=== PATIENT | female | born 1945 | race Caucasian/White ===

== ENCOUNTER 2017-11-24 19:17 | Emergency (ER) | payer MEDICARE, SELFPAY ==
[2017-11-24 19:18] VITALS: BP 147/75; PULSE 90; RESP 16; TEMP 36.2; O2SAT 94; BMI 21.6
[2017-11-24 19:24] VITALS: O2SAT 94
[2017-11-24] MEDS: Ondansetron 4 MG/2 ML Vial IM (19:31)
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
[2017-11-24] MEDS: Morphine 4 MG/ML Syringe IV ×2 (20:12→22:04)
[2017-11-24] MEDS: Diphth,Pertuss(Acell),Tet Vac 0.5 ML Vial IM (20:12)
[2017-11-24 21:34] VITALS: BP 129/66; PULSE 89; RESP 16; O2SAT 100
[2017-11-24] MEDS: Ondansetron 4 MG/2 ML Vial IV (22:05)
[2017-11-24 23:24] VITALS: BP 119/66; PULSE 96; RESP 16; O2SAT 99
[2017-11-24 23:33] VITALS: BP 119/76; PULSE 95; RESP 16; O2SAT 99
== END 2017-11-24 23:38 | disposition short-term general hospital (02) ==
PROVIDERS: Emergency Provider Emergency Medicine; Family Provider Student in an Organized Health Care Education/Training Program; PCP Student in an Organized Health Care Education/Training Program
DX: S72.401A Unspecified fracture of lower end of right femur, initial encounter for closed fracture (principal); S92.321A Displaced fracture of second metatarsal bone, right foot, initial encounter for closed fracture; S92.331A Displaced fracture of third metatarsal bone, right foot, initial encounter for closed fracture; S92.341A Displaced fracture of fourth metatarsal bone, right foot, initial encounter for closed fracture; S32.039A Unspecified fracture of third lumbar vertebra, initial encounter for closed fracture; S80.811A Abrasion, right lower leg, initial encounter; V86.99XA Unspecified occupant of other special all-terrain or other off-road motor vehicle injured in nontraffic accident, initial encounter; Y93.9 Activity, unspecified; Y92.9 Unspecified place or not applicable; Y99.9 Unspecified external cause status; M54.2 Cervicalgia; I10 Essential (primary) hypertension; Z79.899 Other long term (current) drug therapy
CPT/HCPCS: 72100; 72125; 73552; 73620; 90715; 96372; 96374; 96375; 96376; 99285; J7030; A4216; J2405

== ENCOUNTER 2017-12-01 16:32 | Inpatient (IN) | payer MEDICARE, SELFPAY ==
[2017-12-01 16:55] VITALS: BP 152/72; PULSE 103; RESP 18; TEMP 37.2; O2SAT 98; BMI 23.0
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
--- NOTE | 2017-12-01 20:25 | NURSING ---
Discussed code status with patient, patient wishes to be a full code.
[2017-12-01] MEDS: Acetaminophen 500 MG Tablet 1000 MG PO (21:17)
[2017-12-02 06:03] LABS: Absolute Lymphocyte Count 0.97 X10^3/ul (0.83-4.51); Absolute Neutrophil Count 5.7 X10^3/uL (2.0-7.7); Basophil# 0.02 X10^3/uL; Basophil% 0.3 % (0-1); Eosinophil# 0.19 X10^3/uL; Eosinophils% 2.5 % (0-5); Hematocrit 27.6 % (37-47); Lymphocyte # 0.97 X10^3/ul (4.0); Lymphocyte % 12.9 % (19-41); Mean Corp Hgb Conc 32.6 g/gl (32-36); Mean Corpuscular Hgb 29.7 pg (27.0-32.0); Mean Corpuscular Volume 91.1 fL (81-99); Mean Platelet Vol. 10.3 fl (6.2-12.0); Monocyte# 0.53 X10^3/uL; Neutrophil # 5.71 X10^3/uL (2.7-7.7); Neutrophil % 75.8 % (47-70); Platelet Count 401 K/mm3 (150-450); RBC Distribution Width CV 13.9 % (11.6-14.6); Red Blood Count 3.03 M/mm3 (4.2-5.4); White Blood Count 7.5 K/mm3 (4.4-11.0)
[2017-12-02 06:06] LABS: POSITIVE COUNT NO; POSITIVE DIFFERENTIAL NO; POSITIVE MORPHOLOGY NO
[2017-12-02 06:13] VITALS: BP 139/72; PULSE 99
[2017-12-02 06:13] LABS: Anion Gap 14 (5-15); BUN 10 mg/dL (7-18); BUN/Creat Ratio 17.2 RATIO (10-20); Calcium,Total 8.3 mg/dL (8.5-10.1); Chloride 107 mmol/L (98-107); Creatinine, Serum 0.58 mg/dL (0.55-1.02); EST Glomerular Filtration Rate 109 mL/min (>60); Est Glom Filt Rate - Afr Amer 131 mL/min (>60); Estimated Creatinine Clearance 46.43 ml/min; Glucose 113 mg/dL (74-106); Potassium 3.8 mmol/L (3.5-5.1); Sodium Level 143 mmol/L (136-145)
[2017-12-02] MEDS: Enoxaparin 30 MG/0.3 ML Syringe SC ×2 (06:15→17:13)
[2017-12-02] MEDS: Sertraline 50 MG Tablet 25 MG PO (06:15)
[2017-12-02] MEDS: Lisinopril 10 MG Tablet PO (06:15)
[2017-12-02] MEDS: Meloxicam 15 MG Tablet PO (06:15)
[2017-12-02] MEDS: Acetaminophen 500 MG Tablet 1000 MG PO ×3 (06:16→21:22)
[2017-12-02] MEDS: Senna/Docusate Sodium 1 Tablet 2 TABLET PO ×2 (06:16→17:13)
[2017-12-02] MEDS: Atorvastatin Calcium 40 MG Tablet PO (06:19)
[2017-12-02 06:32] VITALS: PULSE 99
[2017-12-02] MEDS: Magnesium Oxide 400 MG Tablet 200 MG PO (08:23)
[2017-12-02] MEDS: oxyCODONE 5 MG Tablet PO ×3 (08:28→17:17)
[2017-12-02] MEDS: Tuberculin,Purif.prot.deriv. 50 TU/ML Vial 5 ML ID (10:48)
[2017-12-02] MEDS: Iron Polysaccharide Complex 150 MG CAPSULE PO (10:48)
--- NOTE | 2017-12-02 11:58 | NURSING ---
Ortho surgeon office notified to clarify wt bearing status. Pt NWB to RLE until f/u appt 12/15/17. Message left with Dr Diamond for f/u appt, awaiting return call
[2017-12-02 15:45] VITALS: BP 126/56; PULSE 89; RESP 18; TEMP 36.1; O2SAT 99
[2017-12-03] MEDS: Senna/Docusate Sodium 1 Tablet 2 TABLET PO (05:58)
[2017-12-03] MEDS: Enoxaparin 30 MG/0.3 ML Syringe SC ×2 (05:59→17:06)
[2017-12-03] MEDS: Atorvastatin Calcium 40 MG Tablet PO (05:59)
[2017-12-03] MEDS: Acetaminophen 500 MG Tablet 1000 MG PO ×3 (05:59→21:09)
[2017-12-03] MEDS: Meloxicam 15 MG Tablet PO (05:59)
[2017-12-03] MEDS: Lisinopril 10 MG Tablet PO (05:59)
[2017-12-03] MEDS: Sertraline 50 MG Tablet 25 MG PO (06:00)
[2017-12-03] MEDS: oxyCODONE 5 MG Tablet PO ×3 (06:09→17:11)
[2017-12-03] MEDS: Magnesium Oxide 400 MG Tablet 200 MG PO (08:51)
[2017-12-03] MEDS: Iron Polysaccharide Complex 150 MG CAPSULE PO (08:51)
--- NOTE | 2017-12-03 11:03 | CASEMGMT ---
Insurance Clinical information sent. Pending continued stay approval at this time. Auth#[id number] Sejal MOREAU, PHARMACY INFORMATICS SPECIALIST
[2017-12-03 15:59] VITALS: BP 139/68; PULSE 96; RESP 16; TEMP 36.6; O2SAT 97
[2017-12-04 05:47] VITALS: BP 143/76
[2017-12-04] MEDS: Sertraline 50 MG Tablet 25 MG PO (05:48)
[2017-12-04] MEDS: Enoxaparin 30 MG/0.3 ML Syringe SC ×2 (05:49→17:11)
[2017-12-04] MEDS: Meloxicam 15 MG Tablet PO (05:49)
[2017-12-04] MEDS: Lisinopril 10 MG Tablet PO (05:49)
[2017-12-04] MEDS: Acetaminophen 500 MG Tablet 1000 MG PO ×3 (05:50→21:16)
[2017-12-04] MEDS: Atorvastatin Calcium 40 MG Tablet PO (05:51)
[2017-12-04] MEDS: Iron Polysaccharide Complex 150 MG CAPSULE PO (08:16)
[2017-12-04] MEDS: Magnesium Oxide 400 MG Tablet 200 MG PO (08:16)
[2017-12-04] MEDS: oxyCODONE 5 MG Tablet PO ×2 (09:33→17:14)
--- NOTE | 2017-12-04 10:20 | CASEMGMT ---
Insurance Continued stay approved with next update due on 12/09/17. Auth#[id number] Sejal MOREAU, PEDIATRIC DERMATOLOGIST
[2017-12-04 16:00] VITALS: BP 136/75; PULSE 95; RESP 18; TEMP 36.4; O2SAT 96
[2017-12-05] MEDS: Enoxaparin 30 MG/0.3 ML Syringe SC ×2 (06:12→18:03)
[2017-12-05] MEDS: Meloxicam 15 MG Tablet PO (06:12)
[2017-12-05] MEDS: Atorvastatin Calcium 40 MG Tablet PO (06:12)
[2017-12-05] MEDS: Sertraline 50 MG Tablet 25 MG PO (06:12)
[2017-12-05] MEDS: Lisinopril 10 MG Tablet PO (06:12)
[2017-12-05] MEDS: Acetaminophen 500 MG Tablet 1000 MG PO ×3 (06:13→21:01)
[2017-12-05] MEDS: Iron Polysaccharide Complex 150 MG CAPSULE PO (09:07)
[2017-12-05] MEDS: Magnesium Oxide 400 MG Tablet 200 MG PO (09:07)
[2017-12-05] MEDS: oxyCODONE 5 MG Tablet PO ×2 (11:58→18:06)
[2017-12-05 15:10] VITALS: BP 132/69; PULSE 89; RESP 18; TEMP 36.8; O2SAT 90
[2017-12-05 16:46] VITALS: PULSE 72
[2017-12-06] MEDS: Acetaminophen 500 MG Tablet 1000 MG PO ×2 (06:50→13:31)
[2017-12-06] MEDS: Sertraline 50 MG Tablet 25 MG PO (06:50)
[2017-12-06] MEDS: Meloxicam 15 MG Tablet PO (06:50)
[2017-12-06] MEDS: Lisinopril 10 MG Tablet PO (06:50)
[2017-12-06] MEDS: Atorvastatin Calcium 40 MG Tablet PO (06:51)
[2017-12-06] MEDS: Enoxaparin 30 MG/0.3 ML Syringe SC ×2 (06:51→18:15)
[2017-12-06] MEDS: Magnesium Oxide 400 MG Tablet 200 MG PO (07:44)
[2017-12-06] MEDS: Iron Polysaccharide Complex 150 MG CAPSULE PO (07:44)
[2017-12-06 10:00] VITALS: PULSE 70; RESP 20
[2017-12-06] MEDS: oxyCODONE 5 MG Tablet PO ×2 (13:36→20:23)
[2017-12-06 15:09] VITALS: BP 121/53; PULSE 85; RESP 18; TEMP 36.6; O2SAT 95
[2017-12-07] MEDS: Lisinopril 10 MG Tablet PO (06:23)
[2017-12-07] MEDS: Atorvastatin Calcium 40 MG Tablet PO (06:23)
[2017-12-07] MEDS: Acetaminophen 500 MG Tablet 1000 MG PO ×2 (06:23→14:47)
[2017-12-07] MEDS: Sertraline 50 MG Tablet 25 MG PO (06:23)
[2017-12-07] MEDS: Meloxicam 15 MG Tablet PO (06:24)
[2017-12-07] MEDS: Enoxaparin 30 MG/0.3 ML Syringe SC ×2 (06:25→17:20)
[2017-12-07] MEDS: Magnesium Oxide 400 MG Tablet 200 MG PO (07:37)
[2017-12-07] MEDS: Iron Polysaccharide Complex 150 MG CAPSULE PO (07:37)
[2017-12-07 10:00] VITALS: PULSE 96; RESP 14; O2SAT 96
--- NOTE | 2017-12-07 11:52 | CASEMGMT ---
Brief interview for mental status (BIMS) and resident mood interview (PHQ-9) completed on this day. BIMS score 1515. PHQ-9 score 07/07
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
[2017-12-07] MEDS: oxyCODONE 5 MG Tablet PO ×2 (12:39→20:46)
[2017-12-07 15:14] VITALS: BP 114/59; PULSE 88; RESP 16; TEMP 35.6; O2SAT 97
[2017-12-07] MEDS: Senna/Docusate Sodium 1 Tablet 2 TABLET PO (17:20)
[2017-12-07] MEDS: LORazepam 0.5 MG Tablet PO (20:46)
[2017-12-08] MEDS: Lisinopril 10 MG Tablet PO (06:15)
[2017-12-08] MEDS: Sertraline 50 MG Tablet 25 MG PO (06:15)
[2017-12-08] MEDS: Acetaminophen 500 MG Tablet 1000 MG PO ×2 (06:15→14:33)
[2017-12-08] MEDS: Enoxaparin 30 MG/0.3 ML Syringe SC ×2 (06:15→17:19)
[2017-12-08] MEDS: Atorvastatin Calcium 40 MG Tablet PO (06:16)
[2017-12-08] MEDS: Meloxicam 15 MG Tablet PO (06:16)
[2017-12-08] MEDS: Iron Polysaccharide Complex 150 MG CAPSULE PO (09:11)
[2017-12-08] MEDS: Magnesium Oxide 400 MG Tablet 200 MG PO (09:11)
[2017-12-08] MEDS: oxyCODONE 5 MG Tablet PO ×2 (12:21→21:05)
[2017-12-08 15:28] VITALS: BP 130/71; PULSE 68; RESP 18; TEMP 36.6; O2SAT 98
[2017-12-08] MEDS: Senna/Docusate Sodium 1 Tablet 2 TABLET PO (17:19)
[2017-12-08] MEDS: LORazepam 0.5 MG Tablet PO (21:05)
[2017-12-09] MEDS: Senna/Docusate Sodium 1 Tablet 2 TABLET PO (06:41)
[2017-12-09] MEDS: Acetaminophen 500 MG Tablet 1000 MG PO (06:42)
[2017-12-09] MEDS: Meloxicam 15 MG Tablet PO (06:42)
[2017-12-09] MEDS: Atorvastatin Calcium 40 MG Tablet PO (06:42)
[2017-12-09] MEDS: Sertraline 50 MG Tablet 25 MG PO (06:42)
[2017-12-09] MEDS: Lisinopril 10 MG Tablet PO (06:42)
[2017-12-09] MEDS: Enoxaparin 30 MG/0.3 ML Syringe SC ×2 (06:43→17:37)
[2017-12-09] MEDS: Iron Polysaccharide Complex 150 MG CAPSULE PO (08:44)
[2017-12-09] MEDS: Magnesium Oxide 400 MG Tablet 200 MG PO (08:45)
--- NOTE | 2017-12-09 10:06 | CASEMGMT ---
Plan of care meeting held. Resident present as well as resident family. No discharge date set at this time. Resident to continue with further care and treatment on the Transitional Care Unit. Resident with an insurance update due on this day and is aware that continued stay approval is not guaranteed. Resident plans to discharge to home with spouse at time of discharge. Resident family planning to install a ramp at home. Support given. Will continue to follow. Sejal MOREAU, DIE CASTING MACHINE MAINTAINER
[2017-12-09] MEDS: Tuberculin,Purif.prot.deriv. 50 TU/ML Vial 5 ML ID (11:33)
--- NOTE | 2017-12-09 12:00 | CASEMGMT ---
Insurance Clinical information faxed. Pending continued stay approval at this time. Auth#[id number] Sejal MOREAU, SUPERVISOR FILES
--- NOTE | 2017-12-09 12:12 | NURSING ---
Clarified orders with Dr Alfonso office. pt is to be NPO after MN, no pain meds or scheduled meds before. It will be outpatient procedure. Will call back about Lovenox if it should be given or held. awaiting return call.
[2017-12-09] MEDS: oxyCODONE 5 MG Tablet PO ×2 (13:16→21:08)
[2017-12-09 15:53] VITALS: BP 120/68; PULSE 80; RESP 18; TEMP 36.4; O2SAT 98
[2017-12-09] MEDS: LORazepam 0.5 MG Tablet PO (21:09)
[2017-12-10] MEDS: Lisinopril 10 MG Tablet PO (06:41)
[2017-12-10] MEDS: Meloxicam 15 MG Tablet PO (06:41)
[2017-12-10] MEDS: Sertraline 50 MG Tablet 25 MG PO (06:41)
[2017-12-10] MEDS: Enoxaparin 30 MG/0.3 ML Syringe SC ×2 (06:41→16:59)
[2017-12-10] MEDS: Acetaminophen 500 MG Tablet 1000 MG PO ×3 (06:41→21:01)
[2017-12-10] MEDS: Atorvastatin Calcium 40 MG Tablet PO (06:41)
--- NOTE | 2017-12-10 06:50 | MDS.RN ---
Information for the mds was obtained from review of the clinical record, interview of resident, staff, and direct observation of resident's care.
[2017-12-10] MEDS: Magnesium Oxide 400 MG Tablet 200 MG PO (09:28)
[2017-12-10] MEDS: Iron Polysaccharide Complex 150 MG CAPSULE PO (09:28)
--- NOTE | 2017-12-10 09:37 | NURSING ---
Dr Alfonso office called and pt surgery moved up to 1130 on 12/16/17 and needs to be there at 0930. pt and aware.
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
[2017-12-10] MEDS: oxyCODONE 5 MG Tablet PO ×2 (12:24→21:00)
--- NOTE | 2017-12-10 14:11 | CASEMGMT ---
Insurance Continued stay denied with last cover day being 12/12/17 and resident to discharge or financial responsibility to begin on 12/13/17. Auth#[id number] Sejal MOREAU, REFUELING RAMP SUPERVISOR
[2017-12-10 15:23] VITALS: BP 123/55; PULSE 80; RESP 18; TEMP 36.1; O2SAT 99
--- NOTE | 2017-12-10 15:32 | CASEMGMT ---
Social Work Spoke with resident and resident daughter in room. This social media content specialist communicating to resident that continued stay has been denied by insurance with a last cover day of 12/12/17 and resident to discharge or financial responsibility to begin on 12/13/17. Resident voicing understanding and not agreeable to discharge date. Resident planning to initiate appeal. Resident educated on appeal process and aware that a discharge plan will still need to be put in place unless resident is planning to continue with stay via private pay. Resident reporting to not want to continue with stay private pay and to plan to discharge to home with spouse at time of discharge if appeal is lost. This social media content specialist communicating that physical and occupational therapy are recommending for resident to have continued services within the home at time of discharge. Resident is agreeable to recommendation and also requesting for a home health aide to be set up. Resident requesting for home health services to be set up through [facility] ([facility] Resident also reporting to require a front wheeled walker and wheelchair at time of discharge and requesting for medical equipment to be set up through [facility]. Resident family planning to stop by [facility] tomorrow to berry picker equipment in the event that the appeal is lost. Resident family would also provide transportation home for resident at time of discharge if appeal is lost. Support given. [facility] This social media content specialist making referral for physical and occupational therapy as well as home health aide. Order to be completed. Order for wheelchair and walker faxed to [facility] along with clinical information. Proposed discharge date: 12/13/17 pending appeal. PLAN: Discharge to home with spouse and home health services, pending appeal. Sejal MOREAU, PRODUCT DEVELOPMENT SPECIALIST
[2017-12-10] MEDS: LORazepam 0.5 MG Tablet PO (21:00)
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
[2017-12-11] MEDS: Lisinopril 10 MG Tablet PO (06:21)
[2017-12-11] MEDS: Meloxicam 15 MG Tablet PO (06:21)
[2017-12-11] MEDS: Enoxaparin 30 MG/0.3 ML Syringe SC ×2 (06:21→17:46)
[2017-12-11] MEDS: Acetaminophen 500 MG Tablet 1000 MG PO (06:21)
[2017-12-11] MEDS: Sertraline 50 MG Tablet 25 MG PO (06:22)
[2017-12-11] MEDS: Atorvastatin Calcium 40 MG Tablet PO (06:22)
[2017-12-11 06:26] VITALS: BP 140/63; PULSE 94
[2017-12-11] MEDS: Magnesium Oxide 400 MG Tablet 200 MG PO (09:24)
[2017-12-11] MEDS: oxyCODONE 5 MG Tablet PO ×2 (09:24→21:00)
[2017-12-11] MEDS: Iron Polysaccharide Complex 150 MG CAPSULE PO (09:25)
--- NOTE | 2017-12-11 09:42 | CASEMGMT ---
Insurance Pt would like to appeal insurance denial of continued stay. DENC delivered to pt and confirmation faxed to [employer]. Medical record information faxed to [facility] for appeal determination. Will await appeal determination. Auth # [id number] PRIETO Bhat
[2017-12-11 15:43] VITALS: BP 122/63; PULSE 90; RESP 16; TEMP 35.4; O2SAT 98
[2017-12-11] MEDS: Senna/Docusate Sodium 1 Tablet 2 TABLET PO (17:46)
[2017-12-11] MEDS: LORazepam 0.5 MG Tablet PO (20:59)
[2017-12-12] MEDS: Lisinopril 10 MG Tablet PO (06:18)
[2017-12-12] MEDS: Sertraline 50 MG Tablet 25 MG PO (06:18)
[2017-12-12] MEDS: Meloxicam 15 MG Tablet PO (06:18)
[2017-12-12] MEDS: Atorvastatin Calcium 40 MG Tablet PO (06:19)
[2017-12-12] MEDS: Enoxaparin 30 MG/0.3 ML Syringe SC ×2 (06:19→17:15)
[2017-12-12] MEDS: Magnesium Oxide 400 MG Tablet 200 MG PO (08:41)
[2017-12-12] MEDS: Iron Polysaccharide Complex 150 MG CAPSULE PO (08:41)
[2017-12-12] MEDS: oxyCODONE 5 MG Tablet PO ×2 (12:37→21:42)
[2017-12-12] MEDS: LORazepam 0.5 MG Tablet PO ×2 (12:37→21:41)
[2017-12-12 15:37] VITALS: BP 135/60; PULSE 60; RESP 18; TEMP 36.8; O2SAT 95
[2017-12-12] MEDS: Senna/Docusate Sodium 1 Tablet 2 TABLET PO (17:15)
[2017-12-13] MEDS: Enoxaparin 30 MG/0.3 ML Syringe SC (04:21)
[2017-12-13] MEDS: Acetaminophen 500 MG Tablet 1000 MG PO (04:22)
[2017-12-13] MEDS: Atorvastatin Calcium 40 MG Tablet PO (04:23)
[2017-12-13] MEDS: Sertraline 50 MG Tablet 25 MG PO (04:23)
[2017-12-13] MEDS: Meloxicam 15 MG Tablet PO (04:23)
[2017-12-13] MEDS: Lisinopril 10 MG Tablet PO (04:24)
[2017-12-13] MEDS: Iron Polysaccharide Complex 150 MG CAPSULE PO (09:05)
[2017-12-13] MEDS: Magnesium Oxide 400 MG Tablet 200 MG PO (09:06)
[2017-12-13] MEDS: oxyCODONE 5 MG Tablet PO (09:45)
[2017-12-13 10:47] VITALS: BP 135/60; PULSE 60; RESP 18; TEMP 36.8; O2SAT 95
--- NOTE | 2017-12-15 10:09 | CASEMGMT ---
Insuranc Notified insurance of resident discharge on 12/12/17 to home with spouse and home health services. Auth#[id number] Sejal MOREAU, IMPORT EXPORT CLERK
== END 2017-12-13 10:45 | disposition home health service (06) | DRG 561 ==
PROVIDERS: Admitting Provider Family Medicine Geriatric Medicine; Family Provider Student in an Organized Health Care Education/Training Program; PCP Student in an Organized Health Care Education/Training Program; Visit Provider Family Medicine Geriatric Medicine
DX: S32.031D Stable burst fracture of third lumbar vertebra, subsequent encounter for fracture with routine healing (principal); V86.99XD Unspecified occupant of other special all-terrain or other off-road motor vehicle injured in nontraffic accident, subsequent encounter; S72.91XD Unspecified fracture of right femur, subsequent encounter for closed fracture with routine healing; S92.321D Displaced fracture of second metatarsal bone, right foot, subsequent encounter for fracture with routine healing; S92.331D Displaced fracture of third metatarsal bone, right foot, subsequent encounter for fracture with routine healing; I10 Essential (primary) hypertension; E78.5 Hyperlipidemia, unspecified; E55.9 Vitamin D deficiency, unspecified; M19.90 Unspecified osteoarthritis, unspecified site; F32.9 Major depressive disorder, single episode, unspecified; F41.9 Anxiety disorder, unspecified; Z87.891 Personal history of nicotine dependence; Z98.1 Arthrodesis status; E83.42 Hypomagnesemia
CPT/HCPCS: 36415; 80048; 85025; 97110; 97116; 97162; 97165; 97530; 97535; 97802

== ENCOUNTER → 2018-01-12 12:55 | Outpatient (CLI) | payer MEDICARE, SELFPAY ==
--- NOTE | 2018-01-12 13:00 | BD_ITS ---
STUDY: DUAL ENERGY X-RAY ABSORPTIOMETRY / DXA REASON FOR EXAM: Female, 72 years old. TECHNIQUE: Bone Mineral Density (BMD) measurements of lumbar spine and bilateral hips were obtained. COMPARISON: 2012 FINDINGS: Right Forearm: g/cm2 (0.674) / T-score (-2.4) / Z-score (-0.4) Left Forearm: g/cm2 (0.595) / T-score (-3.3) / Z-score (-1.3) BD/Dexa Bone Density/Append Skel IMPRESSION: The patient is considered osteoporotic as outlined below according to World [employer] Organization (WHO) criteria with a high fracture risk. There has been no change of bone density since the previous examination. Reference Information: The T-score is the number of standard deviations above or below the standard which is normal for young adults at their peak bone mineral density. The World Health Organization (WHO) interprets the T-scores as follows: Above -1 Normal bone density Between -1 and -2.5 Osteopenia Equal to / or below -2.5 Osteoporosis As a practical clinical guideline, osteopenia may be graded as follows: Mild -1 through -1.5 Moderate -1.6 through -2.0 Severe -2.1 through -2.4 The Z-score is the number of standard deviations above or below age-matched controls. A Z-score of less than -1.5 would be considered abnormal. References: 1. NIH Osteoporosis and Related Bone Diseases http://www.osteo.org 2. International Society for Clinical Densitometry http://www.iscd.org 3. National Osteoporosis Foundation http://www.nof.org Electronically Signed: Yvan Virk MD at 12:11 EDT , Service support ,
== END ==
PROVIDERS: Family Provider Student in an Organized Health Care Education/Training Program; PCP Student in an Organized Health Care Education/Training Program
DX: M81.0 Age-related osteoporosis without current pathological fracture (principal)
CPT/HCPCS: 77081

== ENCOUNTER → 2024-01-19 | Outpatient (CLI) | payer MEDICARE, SELFPAY ==
[2024-01-19 15:54] LABS: PTHIN 19.8 pg/mL (18.4-80.1); T3 Total - Triiodothyronine 0.99 ng/mL (0.6-1.81); Vitamin D,25 Hydroxy 58.9 ng/mL
[2024-01-19 15:57] LABS: Hemoglobin A1c 5.6 % (3.8-5.6)
[2024-01-19 16:05] LABS: ALB/GLOB Ratio 1.1 RATIO (0.9-2.4); AST(SGOT) 28 U/L (15-37); Alanine Aminotransfer ALT/SGPT 26 U/L (13-56); Albumin, Serum 3.8 g/dL (3.2-5.0); Alkaline Phosphatase 79 U/L (45-117); Anion Gap 7 (5-15); BUN 17 mg/dL (7-18); BUN/Creat Ratio 16.5 RATIO (10-20); Calcium,Total 9.8 mg/dL (8.5-10.1); Chloride 101 mmol/L (98-107); Creatinine, Serum 1.03 mg/dL (0.55-1.02); EST Glomerular Filtration Rate 55 mL/min (>60); Est Glom Filt Rate - Afr Amer 67 mL/min (>60); Globulin 3.6 g/dL (2.2-4.2); Glucose 90 mg/dL (74-106); Potassium 4.2 mmol/L (3.5-5.1); Protein, Total 7.4 g/dL (6.4-8.2); Sodium Level 135 mmol/L (136-145); T4 Total, Thyroxin 9.9 ug/dL (4.8-13.9)
[2024-01-21 16:10] LABS: Anti-Nuclear Antibody Test Positive (.)
== END | disposition home or self-care (01) ==
PROVIDERS: PCP Student in an Organized Health Care Education/Training Program; Referring Provider Physician Assistant Medical; Visit Provider Physician Assistant Medical
DX: L80 Vitiligo (principal); L21.8 Other seborrheic dermatitis; R53.83 Other fatigue
CPT/HCPCS: 36415; 80053; 82306; 83036; 83970; 84436; 84443; 84480; 86038